=== PATIENT | male | born 1980 | race Asian ===

== ENCOUNTER 2019-08-01 17:26 | Inpatient (IN) | payer MEDICARE, OTHER ==
[~2019-08-01] VITALS: Ht 182.9 cm
[2019-08-01] MEDS ORDERED: WARF3TAB28 PO (17:35)
[2019-08-01] MEDS ORDERED: IBUPROFEN 600MG TABLET PO ONE (18:00)
[2019-08-01 18:23] LABS: BASOPHILS % 0.3 % (0.0-2.0); EOSINOPHILS % 2.5 % (0.0-5.0); HEMATOCRIT. 40.7 % (42.0-52.0); HEMOGLOBIN. 13.2 g/dL (14.0-18.0); LYMPHOCYTES % 13.7 % (20.0-50.0); MEAN CORPUSCULAR HEMOGLOBIN 26.9 pg (28.0-32.0); MEAN CORPUSCULAR VOLUME 82.8 fL (80.0-94.0); MEAN PLATELET VOLUME 7.3 fl (7.4-10.4); MONOCYTES % 6.7 % (2.0-8.0); NEUTROPHILS % 76.8 % (40.0-76.0); PLATELET 225 x1000/uL (130-400); RED BLOOD CELL COUNT 4.91 mill/uL (4.7-6.1); RED CELL DISTRIBUTION WIDTH 15.5 % (11.6-14.6)
[2019-08-01 18:31] LABS: CHLORIDE 104 mEq/L (98-107); INR 1.1
[2019-08-01] MEDS ORDERED: ASPIRIN 325MG EC TABLET PO ONE (19:15)
[2019-08-01] MEDS ORDERED: ENOXAPARIN 150MG/ML SYR SUBCUT ONE (19:15)
[2019-08-01] MEDS ORDERED: HEPARIN 25,000 UNITS PREMIX 500 ML IV PRN ×2 (20:15→21:30)
[2019-08-01] MEDS ORDERED: HEPARIN 5000 UNITS/ML VIAL IV ONE ×2 (20:15→21:00)
[2019-08-02] MEDS ORDERED: HEPARIN BOLUS PRN aPTT <36 IV (04:00)
[2019-08-02 05:03] LABS: INR 1.1; PARTIAL THROMBOPLASTIN TIME 53.9 sec (23.4-31.0); PROTHROMBIN TIME 12.1 sec (9.6-11.0)
[2019-08-02 10:55] LABS: INR 1.1; PARTIAL THROMBOPLASTIN TIME 33.6 sec (23.4-31.0)
[2019-08-02] MEDS: HEPARIN 25,000 UNITS PREMIX 500 ML IV SCH ×2 (11:12→23:54)
[2019-08-02] MEDS ORDERED: CLONIDINE 0.1MG TABLET PO PRN (16:00)
[2019-08-02] MEDS ORDERED: ONDANSETRON HCL 4MG/2ML INJ IV PRN (16:00)
[2019-08-02] MEDS ORDERED: ACETAMINOPHEN 325MG TABLET PO PRN (16:00)
[2019-08-02 17:00] VITALS: BP 108/80
[2019-08-02] MEDS ORDERED: HYDROCODONE/ACETAMINOPHEN 10/325MG TABLET PO PRN (17:09)
[2019-08-02 21:00] VITALS: BP 110/62
[2019-08-03] VITALS (9 sets, daily range): BP systolic 99–125; BP diastolic 44–79
[2019-08-03] MEDS ORDERED: FURO20TA4 PO (05:02)
[2019-08-03] MEDS ORDERED: WARF10TA21 PO (05:02)
[2019-08-03] MEDS ORDERED: WARF2TAB57 PO (05:02)
[2019-08-03 07:15] LABS: CHLORIDE 104 mEq/L (98-107)
[2019-08-03 07:19] LABS: BASOPHILS % 0.1 % (0.0-2.0); EOSINOPHILS % 2.4 % (0.0-5.0); HEMOGLOBIN. 12.6 g/dL (14.0-18.0); LYMPHOCYTES % 11.1 % (20.0-50.0); MEAN CORPUSCULAR HEMOGLOBIN 27.1 pg (28.0-32.0); MEAN CORPUSCULAR VOLUME 83.7 fL (80.0-94.0); MEAN PLATELET VOLUME 7.5 fl (7.4-10.4); MONOCYTES % 8.3 % (2.0-8.0); NEUTROPHILS % 78.1 % (40.0-76.0); PLATELET 200 x1000/uL (130-400); RED BLOOD CELL COUNT 4.66 mill/uL (4.7-6.1); RED CELL DISTRIBUTION WIDTH 15.4 % (11.6-14.6)
[2019-08-03] MEDS: HEPARIN BOLUS PRN aPTT 37-44 IV ×2 (08:37→20:27)
[2019-08-03] MEDS ORDERED: SODIUM CHLORIDE 0.9% 1,000 ML IV SCH (09:45)
[2019-08-03] MEDS ORDERED: DEXTROSE 50% WATER 50ML SYRINGE IV PRN (10:30)
[2019-08-03] MEDS: BLOOD SUGAR DIAGNOSTIC STRIP TEST SCH ×3 (11:45→21:09)
[2019-08-03] MEDS: INSULIN LISPRO 100 UNITS/ML SUBCUT SCH ×3 (12:15→21:00)
[2019-08-03] MEDS: HEPARIN 25,000 UNITS PREMIX 500 ML IV SCH (12:42)
[2019-08-04] VITALS: BP 119/75
[2019-08-04 02:58] LABS: BASOPHILS % 0.8 % (0.0-2.0); EOSINOPHILS % 3.1 % (0.0-5.0); HEMATOCRIT. 37.8 % (42.0-52.0); HEMOGLOBIN. 12.2 g/dL (14.0-18.0); LYMPHOCYTES % 17.5 % (20.0-50.0); MEAN CORPUSCULAR HEMOGLOBIN 26.9 pg (28.0-32.0); MEAN CORPUSCULAR VOLUME 83.7 fL (80.0-94.0); MEAN PLATELET VOLUME 7.3 fl (7.4-10.4); NEUTROPHILS % 69.6 % (40.0-76.0); PLATELET 193 x1000/uL (130-400); RED BLOOD CELL COUNT 4.52 mill/uL (4.7-6.1); RED CELL DISTRIBUTION WIDTH 15.2 % (11.6-14.6)
[2019-08-04 02:59] LABS: CHLORIDE 103 mEq/L (98-107)
[2019-08-04 04:00] VITALS: BP 128/54
[2019-08-04] MEDS: HEPARIN BOLUS PRN aPTT 37-44 IV ×2 (04:32→17:57)
[2019-08-04] MEDS: BLOOD SUGAR DIAGNOSTIC STRIP TEST SCH ×3 (06:42→21:09)
[2019-08-04] MEDS: INSULIN LISPRO 100 UNITS/ML SUBCUT SCH ×3 (06:52→21:00)
[2019-08-04 08:00] VITALS: BP 117/76
[2019-08-04 12:00] VITALS: BP 119/71
[2019-08-04 16:00] VITALS: BP 121/71
[2019-08-04 20:00] VITALS: BP 120/95
[2019-08-05] VITALS: BP 136/95
[2019-08-05 04:00] VITALS: BP 113/76
[2019-08-05] MEDS: INSULIN LISPRO 100 UNITS/ML SUBCUT SCH ×4 (05:34→20:40)
[2019-08-05] MEDS: BLOOD SUGAR DIAGNOSTIC STRIP TEST SCH ×4 (05:34→20:40)
[2019-08-05 08:00] VITALS: BP 160/94
[2019-08-05] MEDS: HEPARIN 25,000 UNITS PREMIX 500 ML IV SCH ×3 (08:10→21:46)
[2019-08-05 12:00] VITALS: BP 156/92
[2019-08-05] MEDS: HEPARIN BOLUS PRN aPTT 37-44 IV (13:42)
[2019-08-05 16:00] VITALS: BP 152/88
[2019-08-05 20:00] VITALS: BP 113/58
[2019-08-06] VITALS: BP 119/83
[2019-08-06 04:00] VITALS: BP 143/80
[2019-08-06] MEDS: BLOOD SUGAR DIAGNOSTIC STRIP TEST SCH ×4 (06:20→21:43)
[2019-08-06] MEDS: INSULIN LISPRO 100 UNITS/ML SUBCUT SCH ×4 (06:20→21:00)
[2019-08-06 07:29] LABS: CHLORIDE 100 mEq/L (98-107)
[2019-08-06 07:39] LABS: BASOPHILS % 0.7 % (0.0-2.0); EOSINOPHILS % 0.5 % (0.0-5.0); HEMATOCRIT. 40.9 % (42.0-52.0); HEMOGLOBIN. 13.2 g/dL (14.0-18.0); LYMPHOCYTES % 8.8 % (20.0-50.0); MEAN CORPUSCULAR HEMOGLOBIN 27.3 pg (28.0-32.0); MONOCYTES % 6.4 % (2.0-8.0); NEUTROPHILS % 83.6 % (40.0-76.0); RED BLOOD CELL COUNT 4.82 mill/uL (4.7-6.1); RED CELL DISTRIBUTION WIDTH 15.4 % (11.6-14.6)
[2019-08-06 08:00] VITALS: BP 107/83
[2019-08-06 09:23] LABS: PLATELET 131 x1000/uL (130-400)
[2019-08-06 09:24] LABS: MEAN PLATELET VOLUME 8.2 fl (7.4-10.4)
[2019-08-06 12:00] VITALS: BP 120/93
[2019-08-06] MEDS: HEPARIN 25,000 UNITS PREMIX 500 ML IV SCH ×2 (13:51→18:08)
[2019-08-06 16:00] VITALS: BP 117/77
[2019-08-06 20:00] VITALS: BP 166/130
[2019-08-06] MEDS ORDERED: ACETAMINOPHEN 325MG TABLET PO PRN (20:00)
[2019-08-06] MEDS ORDERED: ALBUTEROL (0.083%) 2.5MG/3ML NEB HHN ONE ×2 (23:30)
[2019-08-06] MEDS ORDERED: IPRATROPIUM/ALBUTEROL 0.5-3(2.5)MG/3ML NEB HHN NR ×2 (23:45)
[2019-08-07] VITALS: BP 124/55
[2019-08-07] MEDS: HEPARIN 25,000 UNITS PREMIX 500 ML IV SCH ×2 (00:04→06:45)
[2019-08-07 04:00] VITALS: BP 103/62
[2019-08-07] MEDS: BLOOD SUGAR DIAGNOSTIC STRIP TEST SCH ×2 (06:26→11:45)
[2019-08-07] MEDS: INSULIN LISPRO 100 UNITS/ML SUBCUT SCH ×2 (06:26→12:15)
[2019-08-07 08:00] VITALS: BP 111/67
[2019-08-07] MEDS ORDERED: DOCU-138 PO (12:27)
[2019-08-07] MEDS ORDERED: FERR-71 MT (12:27)
[2019-08-07] MEDS ORDERED: FURO40TA5 PO (12:27)
[2019-08-07] MEDS ORDERED: AMLO10TA80 PO (12:27)
[2019-08-07] MEDS ORDERED: FISH1CAP63 PO (12:27)
[2019-08-07] MEDS ORDERED: ATOR20TA65 PO (12:27)
[2019-08-07] MEDS ORDERED: METO100T16 PO (12:27)
[2019-08-07] MEDS ORDERED: LISI40TA4 PO (12:27)
[2019-08-07] MEDS ORDERED: ASPI-1497 PO (12:27)
[2019-08-07 13:13] VITALS: BP 101/78
== END 2019-08-07 15:32 | disposition home or self-care (01) | DRG 300 ==
LOC: ER 17:26 → ENRESERV 08-02 15:41 → 5WST 08-02 18:51
PROVIDERS: ADMIT Internal Medicine; ATTEND Internal Medicine
DX: I74.3 Embolism and thrombosis of arteries of the lower extremities (principal); Z68.45 Body mass index [BMI] 70 or greater, adult; I48.20 Chronic atrial fibrillation, unspecified; D68.59 Other primary thrombophilia; E66.01 Morbid (severe) obesity due to excess calories; E78.5 Hyperlipidemia, unspecified; F17.200 Nicotine dependence, unspecified, uncomplicated; G47.33 Obstructive sleep apnea (adult) (pediatric); I11.9 Hypertensive heart disease without heart failure; R73.03 Prediabetes; I99.8 Other disorder of circulatory system; E66.09 Other obesity due to excess calories; R63.4 Abnormal weight loss; Z59.0 Homelessness; Z91.14 Patient's other noncompliance with medication regimen; Z79.01 Long term (current) use of anticoagulants; Z91.19 Patient's noncompliance with other medical treatment and regimen
CPT/HCPCS: 36415; 71045; 80048; 80053; 82962; 83036; 83735; 84132; 84484; 85025; 93005; 93922; 93971; 97162; 97530; 99291; J1644; J1650; J1815; J7030